=== PATIENT | female | born 1980 | race Caucasian/White ===

== ENCOUNTER 2023-02-04 02:01 | Emergency (ER) | payer SELFPAY ==
[2023-02-04 02:29] VITALS: BP 132/90; PULSE 92; RESP 18; TEMP 98.4
[2023-02-04 02:39] LABS: Basophils % (A) 0 %; Eosinophils # (A) 0.4 k/uL (0-0.7); Eosinophils % (A) 3 %; HCT 42.1 % (34.0-46.0); HGB 14.3 gm/dL (11.4-16.0); Lymphocytes # (A) 1.5 k/uL (1.0-4.8); Lymphocytes % (A) 15 %; MCH 32.1 pg (25.0-35.0); MCHC 33.9 g/dL (31.0-37.0); MCV 94.7 fL (80.0-100.0); Monocytes # (A) 0.8 k/uL (0-1.0); Monocytes % (A) 8 %; Neutrophils # (A) 7.5 k/uL (1.3-7.7); Neutrophils % (A) 72 %; Platelet Count 261 k/uL (150-450); RBC 4.45 m/uL (3.80-5.40); WBC 10.3 k/uL (3.8-10.6)
[2023-02-04 03:00] LABS: ALT 23 U/L (4-34); AST 25 U/L (14-36); African American GFR (CKD) >90 (>60 ml/min/1.73 sqM); Albumin 4.4 g/dL (3.5-5.0); Alkaline Phosphatase 51 U/L (38-126); Anion Gap 12 mmol/L; Blood Urea Nitrogen 15 mg/dL (7-17); Calcium 9.7 mg/dL (8.4-10.2); Carbon Dioxide 22 mmol/L (22-30); Chloride 104 mmol/L (98-107); Glucose 81 mg/dL (74-99); Non-African American GFR(CKD) >90 (>60 ml/min/1.73 sqM); Potassium 3.9 mmol/L (3.5-5.1); Sodium 138 mmol/L (137-145); Total Bilirubin 0.3 mg/dL (0.2-1.3); Total Protein 7.2 g/dL (6.3-8.2)
== END 2023-02-04 03:55 | disposition left against medical advice (07) ==
LOC: EC 02:01
DX: Z53.21 Procedure and treatment not carried out due to patient leaving prior to being seen by health care provider (principal); R10.9 Unspecified abdominal pain
CPT/HCPCS: 36415; 80053; 85025; 99499

== ENCOUNTER → 2023-06-28 | Outpatient (CLI) | payer BC ==
--- NOTE | 2023-07-09 09:00 | MM ---
Reason for Exam: Screening (asymptomatic). Last mammogram was performed 1 year(s) and 1 month(s) ago. Patient History: 02/11/2021, Ultrasound-Guided Core Biopsy on the Left side. Last menstrual period: 07/27/2017 Risk Values: Anai 5 year model risk: 0.8%. NCI Lifetime model risk: 7.8%. Prior Study Comparison: [facility] . 02/11/2021 Left Diagnostic Mammogram, [facility] . 05/15/2022 Bilateral Screening Mammogram, [facility]. 05/29/2022 Left Diagnostic Ultrasound, [facility] . Tissue Density: The breasts are heterogeneously dense, which may obscure small masses. Findings: Analyzed By CAD. There is no suspicious group of microcalcifications or new suspicious mass in either breast. Overall Assessment: Negative, BI-RAD 1 Management: Screening Mammogram of both breasts in 1 year. . Patient should continue monthly self-breast exams. A clinical breast exam by your physician is recommended on an annual basis. This exam should not preclude additional follow-up of suspicious palpable abnormalities. Note on Anai scores and lifetime risk: 1. A Anai score greater than 3% is considered moderate risk. If this is the case, consider specialist referral to assess eligibility for a risk reducing agent. 2. If overall lifetime risk for the development of breast cancer is 20% or higher, the patient may qualify for future screening with alternating mammogram and breast MRI. Electronically signed and approved by: Lew Becerra M.D. Radiologis
== END | disposition home or self-care (01) ==
LOC: RADMAMWWP 11:23
PROVIDERS: ATTEND Obstetrics & Gynecology
DX: Z12.31 Encounter for screening mammogram for malignant neoplasm of breast (principal)
CPT/HCPCS: 77063; 77067

== ENCOUNTER → 2024-08-03 | Outpatient (CLI) | payer BC ==
--- NOTE | 2024-08-03 10:23 | MM ---
Reason for Exam: Screening (asymptomatic). Last mammogram was performed 1 year(s) and 1 month(s) ago. Patient History: Menarche at age 10. First Full-Term at age 17. 02/11/2021, Ultrasound-Guided Core Biopsy on the Left side. Risk Values: Anai 5 year model risk: 0.9%. NCI Lifetime model risk: 8.3%. Prior Study Comparison: 02/11/2021 Left Diagnostic Mammogram, [facility] . 05/15/2022 Bilateral Screening Mammogram, [facility]. 06/28/2023 Bilateral MG 3D screening mammo w/cad, [facility]. Tissue Density: The breasts are heterogeneously dense, which may obscure small masses. Findings: Analyzed By CAD. Right breast: There is no suspicious group of microcalcifications or new suspicious mass. Left breast: There is no suspicious group of microcalcifications or new suspicious mass. Overall Assessment: Negative, BI-RAD 1 Management: Screening Mammogram of both breasts in [address] [facility] will attempt to contact patient to return for supplemental views and ultrasound if indicated. Patient should continue monthly self-breast exams. A clinical breast exam by your physician is recommended on an annual basis. This exam should not preclude additional follow-up of suspicious palpable abnormalities. Note on Anai scores and lifetime risk: 1. A Anai score greater than 3% is considered moderate risk. If this is the case, consider specialist referral to assess eligibility for a risk reducing agent. 2. If overall lifetime risk for the development of breast cancer is 20% or higher, the patient may qualify for future screening with alternating mammogram and breast MRI. [facility], , 08/03/2024 10:20 AM. Electronically signed and approved by: Harish Abbasi DO
== END | disposition home or self-care (01) ==
LOC: RADMAMWWP 09:45
PROVIDERS: ATTEND Obstetrics & Gynecology
DX: Z12.31 Encounter for screening mammogram for malignant neoplasm of breast (principal); R92.333 Mammographic heterogeneous density, bilateral breasts
CPT/HCPCS: 77063; 77067